=== PATIENT | female | born 1985 | race Caucasian/White ===

== ENCOUNTER 2017-08-03 15:52 | Emergency (ER) | payer BC, OTHER ==
[2017-08-03 15:59] VITALS: BP 147/96; PULSE 92; RESP 14; TEMP 98.6; O2SAT 100
--- NOTE | 2017-08-03 16:55 | RADRPT ---
EXAM DATE/TIME: 08/03/2017 16:38 [facility] COMPARISON: No previous studies available for comparison. INDICATIONS : Fell and hit head 4 days ago, head and neck pain. RADIATION DOSE: 49.89 CTDIvol (mGy) MEDICAL HISTORY : None SURGICAL HISTORY : None. ENCOUNTER: Initial ACUITY: 4 - 6 days PAIN SCALE: 4/10 LOCATION: Bilateral cranial TECHNIQUE: Multiple contiguous axial images were obtained of the head. Using automated exposure control and adj ustment of the mA and/or kV according to patient size, radiation dose was kept as low as reasonably a chievable to obtain optimal diagnostic quality images. DICOM format image data is available electro nically for review and comparison. FINDINGS: CEREBRUM: The ventricles are normal for age. No evidence of midline shift, mass lesion, hemorrhage or acute in farction. No extra-axial fluid collections are seen. POSTERIOR FOSSA: The cerebellum and brainstem are intact. The 4th ventricle is midline. The cerebellopontine angle i s unremarkable. EXTRACRANIAL: The visualized portion of the orbits is intact. SKULL: The calvaria is intact. No evidence of skull fracture. CONCLUSION: 1. No acute intracranial abnormality. Ghassan Pichardo MD on August 03, 2017 at 16:52 Board Certified Radiologist. This report was verified electronically.
--- NOTE | 2017-08-03 17:11 | RADRPT ---
EXAM DATE/TIME: 08/03/2017 16:38 [facility] COMPARISON: No previous studies available for comparison. INDICATIONS : Fell and hit head 4 days ago, head and neck pain. RADIATION DOSE: 34.20 CTDIvol (mGy) MEDICAL HISTORY : None SURGICAL HISTORY : None. ENCOUNTER: Initial ACUITY: 4 - 6 days PAIN SCALE: 4/10 LOCATION: Bilateral neck TECHNIQUE: Volumetric scanning of the cervical spine was performed. Multiplanar reconstructions in the sagittal, coronal and oblique axial planes were performed. Using automated exposure control and adjustment o f the mA and/or kV according to patient size, radiation dose was kept as low as reasonably achievable to obtain optimal diagnostic quality images. DICOM format image data is available electronically f or review and comparison. FINDINGS: Axial tomograms with multiplanar reformats were performed of the cervical spine without contrast. The craniocervical and cervical vertebral body alignment is intact. Vertebral bodies and posterior el ements are intact. The facet joints are satisfactory aligned. There are no soft tissue abnormalities. CONCLUSION: Normal CT of the cervical spine. No evidence of acute fracture or traumatic listhesis. Gage Virk MD on August 03, 2017 at 17:07 Board Certified Radiologist. This report was verified electronically.
--- NOTE | 2017-08-03 17:47 | PD ---
HPI Chief Complaint: Head Injury Time Seen by Provider: 17:44 Travel History International Travel<30 days: No Contact w/Intl Traveler<30days: No Traveled to known affect area: No History of Present Illness HPI 31-year-old female presents to the emergency Department with complaint of headache and right lateral neck pain after falling backwards on Tuesday night and hitting her head on concrete. She said her friend jumped on her back unexpectedly and she fell backwards. She denies loss of consciousness. Reports fatigue. Denies nausea, vomiting, dizziness, lightheadedness. Denies confusion, disorientation, change in mentation, focal deficits or weakness, slurred speech. Denies back pain. Denies extremity pain. Denies chest pain, shortness of breath, abdominal pain. Has taken Tylenol symptom management. Posterior headache. 3/10 in pain. Pain is constant. Describes it as a throbbing sensation. No known aggravating or relieving factors. No known allergies. Primary care provider is Dr. Gómez. Denies significant past medical history. Has no other medical complaints. No other modifying factors or associated signs and symptoms. PFSH Past Medical History ?: Not LMP: Now Social History Alcohol Use: Yes (ONCE A WEEK ) Tobacco Use: No Substance Use: No Allergies-Medications (Allergen,Severity, Reaction): Coded Allergies: No Known Allergies (Unverified , 08/03/17) Reported Meds & Prescriptions Reported Meds & Active Scripts Active Robaxin (Methocarbamol) 500 Mg Tab 500 Mg PO QID PRN Ibuprofen 800 Mg Tab 800 Mg PO Q6HR PRN Review of Systems Except as stated in HPI: all other systems reviewed are Neg Physical Exam Narrative GENERAL: Well-nourished, well-developed patient, in no acute distress SKIN: Warm and dry. HEAD: Atraumatic. Normocephalic. No facial droop noted. Tongue midline. Finger to nose test normal. EYES: Pupils equal and round at 3 mm with brisk reaction. No scleral icterus. No injection or drainage. PERRLA. EOMI. EARS: Bilateral pinnae and external canals appear within normal limits. Bilateral tympanic membranes without erythema, dullness or perforation; without hemotympanums bilaterally. ENT: Mucosa pink and moist. No erythema or exudates. No uvular edema. No uvular , palatal, or tonsillar deviation. Airway patent. Nasal turbinates appear normal without nasal blood, purulent drainage or septal hematoma. NECK: Trachea midline. No lymphadenopathy. Moving freely. No midline tenderness on palpation of the cervical spine. Tenderness in patient to the right lateral musculature of the neck. Active rotation greater than 45 left and right. CARDIOVASCULAR: Regular rate and rhythm. No murmur appreciated. GASTROINTESTINAL: Abdomen soft, non-tender, nondistended. Hepatic and splenic margins not palpable. Bowel sounds are active 4 quadrants. MUSCULOSKELETAL: No obvious deformities. No clubbing. No cyanosis. No edema. NEUROLOGICAL: Awake and alert. Oriented 4. No obvious cranial nerve deficits. Motor grossly within normal limits. Normal speech. No ataxia. No mid -line drift. No upper or lower extremity drift. Moves all extremities. 5/5 strength to all extremities. PSYCHIATRIC: Appropriate mood and affect; insight and judgment normal. Data Data Last Documented VS Vital Signs Date Time Temp Pulse Resp B/P (MAP) Pulse Ox O2 Delivery O2 Flow Rate FiO2 08/03/17 18:12 08/03/17 15:59 98.6 [address] Brain W/O Iv Contrast(Rout) (08/03/17 ) Ct Cerv Spine W/O Contrast (08/03/17 ) Ketorolac Inj (Toradol Inj) (08/03/17 18:00) Orphenadrine Inj (Norflex Inj) (08/03/17 18:00) Ed Discharge Order (08/03/17 18:02) MDM Medical Decision Making Medical Screen Exam Complete: Yes Emergency Medical Condition: Yes Medical Record Reviewed: Yes Differential Diagnosis Closed head injury, strain of trapezius muscle of neck, muscle spasm, concussion , TBI, brain bleed Narrative Course 31-year-old female with closed head injury and strain of cervical portion of the right trapezius muscle of her neck after mechanical fall on Tuesday. Denies loss of consciousness. CT head and CT for cervical spine ordered in triage. 1747: CT head and neck cioncludes: Head CT 08/03/17 0000 Signed Impressions: Service Date/Time: Thursday, August 03, 2017 16:38 - CONCLUSION: 1. No acute intracranial abnormality. Ghassan Pichardo MD Cervical Spine CT 08/03/17 0000 Signed Impressions: Service Date/Time: Thursday, August 03, 2017 16:38 - CONCLUSION: Normal CT of the cervical spine. No evidence of acute fracture or traumatic listhesis. Gage Virk MD Discussed findings of the CT scans with the patient. Toradol and Norflex administered in the ER. Ibuprofen and Robaxin prescribed for home. Instructed patient to follow up with primary care provider. Patient verbalizes understanding and agreement with treatment plan. Patient is medically cleared and stable for discharge. Discussed reasons to return to the emergency department. Patient agrees with treatment plan. The patients vital signs are stable and the patient is stable for outpatient follow-up and treatment. Patient discharged home, stable and in no acute distress. Diagnosis Primary Impression: Closed head injury Qualified Codes: S09.90XA - Unspecified injury of head, initial encounter Additional Impression: Strain of cervical portion of right trapezius muscle Referrals: [facility] Primary Care Physician Patient Instructions: Cervical Neck Strain Exercises (GEN), Cervical Strain (ED ), General Instructions, Head Injury (ED) Additional Instructions: Tylenol or ibuprofen as directed and as needed for pain Robaxin as prescribed and as needed for muscle spasms Heating pad and/or ice to affected area to reduce pain Avoid aggravating activities; increase activity as tolerated Follow-up with primary care provider Return to emergency department immediately with worsening of symptoms Med/Other Pt SpecificInfo: Prescription(s) given Scripts Methocarbamol (Robaxin) 500 Mg Tab 500 MG PO QID Y for MUSCLE SPASM, #30 TAB 0 Refills Prov: Jessica Garza 08/03/17 Ibuprofen (Ibuprofen) 800 Mg Tab 800 MG PO Q6HR Y for PAIN, #30 TAB 0 Refills Prov: Jessica Garza 08/03/17 Disposition: 01 DISCHARGE HOME Condition: Stable Jessica Garza Aug 03, 2017 17:46
[2017-08-03] MEDS ORDERED: IBUP1TAB7 PO (17:50)
[2017-08-03] MEDS ORDERED: ROBA500T PO (17:50)
[2017-08-03] MEDS ORDERED: KETOROLAC TROMETHAMINE 60 MG/2 ML (IM) VIAL IM ONE (18:00)
[2017-08-03] MEDS ORDERED: ORPHENADRINE INJ 60 MG/2 ML AMP IM ONE (18:00)
== END 2017-08-03 18:13 | disposition home or self-care (01) ==
LOC: NEPD 15:52
DX: S09.90XA Unspecified injury of head, initial encounter (principal); S16.1XXA Strain of muscle, fascia and tendon at neck level, initial encounter; W18.00XA Striking against unspecified object with subsequent fall, initial encounter
CPT/HCPCS: 70450; 72125; 96372; 99284; J1885; J2360